=== PATIENT | male | born 1950 | race Two or more races ===

== ENCOUNTER 2023-06-09 12:51 | Emergency (ER) | payer MEDICARE, MEDICAID ==
[~2023-06-09] VITALS: Ht 167.6 cm; Wt 77.0 kg
[2023-06-09] MEDS: cefTRIAXone SOD 500 MG VL IM ONE (15:30)
[2023-06-09 16:08] LABS: Basophils # (auto) 0 10 ^3/uL (0-0.2); Basophils % (auto) 0.5 % (0.0-2.0); Eosinophils # (auto) 0.1 10 ^3/uL (0-0.8); Eosinophils % (auto) 2.6 % (0.0-7.0); Hematocrit 27.5 % (41.0-53.0); Hemoglobin 8.6 g/dL (13.5-17.5); Lymphocytes # (auto) 0.7 10 ^3/uL (0.4-5.4); Lymphocytes % (auto) 19.6 % (10.0-50.0); Mean Corpuscular Hgb Conc. 31.1 g/dL (32.0-36.0); Mean Corpuscular Volume 89.8 fL (80.0-100.0); Monocytes # (auto) 0.4 10 ^3/uL (0-1.3); Monocytes % (auto) 11.5 % (0.0-12.0); Neutrophils # (auto) 2.4 10 ^3/uL (1.6-8.6); Neutrophils % (auto) 65.8 % (37.0-80.0); Nucleated Red Blood Cells % 0.2 %; Red Blood Cells 3.06 10^6/uL (4.5-5.90); Red Cell Distribution Width 17.2 % (11.8-14.3); White Blood Cell 3.6 10^3/uL (4.4-10.8)
[2023-06-09 16:15] LABS: Chloride 108 mmol/L (98-107); Sodium 140 mmol/L (136-145)
[2023-06-09 16:16] LABS: Anion Gap 11 (5-15); Calcium 8.9 mg/dL (8.5-10.1); Carbon Dioxide 21 mmol/L (20-30)
[2023-06-09 16:21] LABS: BUN/Creatinine Ratio 16.7 (10.0-20.0); Blood Urea Nitrogen 25 mg/dL (9-23); Glucose 145 mg/dL (74-106)
[2023-06-09 17:07] LABS: Anisocytosis Slight; Platelet Estimate Decreased
[2023-06-09] MEDS: NEOMYCIN-BACITRACIN-POLYM UNITDOSE PKG TOP OINT TOP ONE (18:22)
[2023-06-10] MEDS: PIPERACILLIN-TAZOB 3.375GM 100 ML IV ONE (02:00)
[2023-06-10 04:04] VITALS: BP 132/76; PULSE 82; RESP 18; TEMP 98.2; O2SAT 93
== END 2023-06-10 04:24 | disposition short-term general hospital (02) ==
LOC: ER 12:51
DX: L02.212 Cutaneous abscess of back [any part, except buttock and flank] (principal); M46.89 Other specified inflammatory spondylopathies, multiple sites in spine
CPT/HCPCS: 36415; 72128; 80048; 85025; 96365; 96372; 99285; J0696; J2543

== ENCOUNTER 2023-06-20 15:31 | Emergency (ER) | payer MEDICARE, MEDICAID ==
[~2023-06-20] VITALS: Ht 167.6 cm; Wt 74.0 kg
[2023-06-20 17:02] LABS: Basophils # (auto) 0 10 ^3/uL (0-0.2); Basophils % (auto) 0.3 % (0.0-2.0); Eosinophils # (auto) 0.2 10 ^3/uL (0-0.8); Eosinophils % (auto) 4.5 % (0.0-7.0); Lymphocytes # (auto) 1.1 10 ^3/uL (0.4-5.4); Lymphocytes % (auto) 24.4 % (10.0-50.0); Mean Corpuscular Hemoglobin 27.9 pg (28.0-32.0); Mean Corpuscular Hgb Conc. 32.1 g/dL (32.0-36.0); Mean Corpuscular Volume 86.8 fL (80.0-100.0); Monocytes # (auto) 0.5 10 ^3/uL (0-1.3); Monocytes % (auto) 10.6 % (0.0-12.0); Neutrophils # (auto) 2.6 10 ^3/uL (1.6-8.6); Neutrophils % (auto) 60.2 % (37.0-80.0); Nucleated Red Blood Cells % 0.1 %; Red Blood Cells 3.22 10^6/uL (4.5-5.90); Red Cell Distribution Width 16.4 % (11.8-14.3); White Blood Cell 4.3 10^3/uL (4.4-10.8)
[2023-06-20 17:17] LABS: Albumin 3.7 g/dL (3.2-4.8); Alkaline Phosphatase 188 U/L (46-116); Anion Gap 13 (5-15); Aspartate Aminotransferase 28 U/L (13-40); BUN/Creatinine Ratio 17.1 (10.0-20.0); Bilirubin, Total 0.7 mg/dL (0.2-1.0); Blood Urea Nitrogen 20 mg/dL (9-23); Calcium 9.4 mg/dL (8.7-10.4); Carbon Dioxide 20 mmol/L (20-30); Chloride 109 mmol/L (98-107); Glucose 96 mg/dL (74-106); Potassium 3.3 mmol/L (3.5-5.1); Sodium 142 mmol/L (136-145)
[2023-06-20 17:18] LABS: Total Protein 7.7 g/dL (5.7-8.2)
[2023-06-20 17:21] LABS: Alanine Aminotransferase < 9 U/L (7-40)
[2023-06-20 17:51] LABS: Lactic Acid w/Reflex 4.8 mmol/L (0.4-2.0)
[2023-06-20 18:24] VITALS: PULSE 82; RESP 14; O2SAT 94
[2023-06-20 19:01] VITALS: TEMP 98
[2023-06-20] MEDS: SODIUM CHLORIDE 0.9% 1,000 ML IV ONE (19:48)
[2023-06-20 21:50] LABS: Urine Bacteria None Seen /hpf (None Seen)
[2023-06-20 22:07] VITALS: BP 170/85; PULSE 85; RESP 18; O2SAT 90
[2023-06-20 22:07] LABS: Urine Blood 1+ /uL (Negative); Urine Clarity Clear (Clear); Urine Color Light-Yellow (Yellow); Urine Protein, UAD 1+ (Negative); Urine Specific Gravity 1.016 (1.001-1.035); Urine Urobilinogen Normal (Negative); Urine WBC 4 /hpf (0 - 3); Urine pH 5.5 (5.0-9.0)
== END 2023-06-20 22:16 | disposition home or self-care (01) ==
LOC: ER 15:31
DX: L02.212 Cutaneous abscess of back [any part, except buttock and flank] (principal); Z48.817 Encounter for surgical aftercare following surgery on the skin and subcutaneous tissue
CPT/HCPCS: 36415; 80053; 81001; 83605; 85025; 96360; 99283; J7030